=== PATIENT | female | born 1950 | race Caucasian/White ===

== ENCOUNTER 2016-11-06 20:39 | Emergency (ER) | payer OTHER ==
[~2016-11-06] VITALS: Ht 167.6 cm; Wt 98.2 kg
[2016-11-06 20:49] VITALS: BP 147/85; PULSE 86; RESP 16; O2SAT 98
--- NOTE | 2016-11-06 21:40 | ED.REPORT ---
HPI-Back Pain 40 and Over Date of Service Nov 06, 2016 ED Provider: Balwinder Rodrigues MD The patient is a 65 year old female w/ a hx of HTN and chronic back pain who presents to the ED due toto increased pain for the past couple days. She has a couple slipped disks in the back (L4-5) but it is not bad enough for surgery. She describes tingling below the left knee and pain that radiates down from her left hip into her knee. She reports excruciating pain just to stand up and sit down. She is currently on Methocarbamol, Naproxen, Gabapentin (300 BID). Associated symptoms include abdominal pain, dysuria, numbness and weakness in legs. She denies fever and incontinence. She lives by herself in an RV which is parked next to her daughter's house. Nursing Notes Stated Complaint: BACK PAIN Chief Complaint: Back Pain or Injury Nursing Notes Reviewed: Yes Allergies: Coded Allergies: No Known Allergies (Verified , 01/19/04) Scheduled Methylprednisolone (MethylprednisoLONE Dose Sean) 4 Mg Tab.ds.pk 4 MG PO UD Follow direction on package. General Time Seen by MD: 21:39 Chief Complaint Back pain Hx Obtained From: Patient Arrived By: Walk-in Sudden in Onset?: Yes Onset Occurred: More than a week ago... (1 month) Symptom Duration: Since onset Location: : Spinal lumbar area Quality: Painful Radiation: : Left leg above knee: Left leg below knee Severity: Current: Moderate Recent Healthcare: No recent doctor visit, No recent hospitalization Past Medical History Past Medical History Chronic back pain Reports: GERD, Hypertension Past Surgical History Lower lumbar surgery Knee Reports: Appendectomy, Cholecystectomy, Hysterectomy, Tonsillectomy Smoking History Never Smoker Social History Alcohol Use: Denies alcohol use Drug Use: Denies drug use Other Social History: Local resident Ambulatory Status Independent Review of Systems Constitutional: Denies: Fever GI: Reports: Abdominal pain Female: Reports: Dysuria, Denies: Incontinence Musculoskeletal: Reports: Back pain, Extremity pain (left knee), Joint pain ( left hip) Neurologic: Reports: Numbness, Weakness Complete sys rev & neg: except as marked. Physical Exam Physical Exam Notes: Initial Vital Signs Vital Signs (First) Date Time Temp Pulse Resp B/P Pulse Ox O2 Delivery O2 Flow Rate FiO2 11/06/16 20:49 36.1 86 16 147/85 98 Room Air Initial VS: Reviewed Head / Eyes: Atraumatic, Normocephalic, PERRL ENT: Mucous membranes moist, Conjunctiva normal, No scleral icterus Neck: Supple, Non-tender, Full range of motion Lymphatic: No lymphadenopathy General/Constitutional: Awake, Alert, Cooperative Distress / Hydration: Positive: Distress mild Respiratory / Chest: Atraumatic, Breath sounds NL, Breath sounds = bilat, No respiratory distress Cardiovascular: Heart rate NL, Regular rhythm, Heart sounds NL, No gallop, No murmurs, No rubs Abdomen: Atraumatic, Soft, BS normoactive, No pulsatile mass Flank / Spine / Paraspinal: Positive: Lumbar spine tender... (Low) tenderness of the lumbar sacral junction little paraspinal spasm Neurologic: Oriented X3, Speech NL, No sensory deficits Lower Extremity / Pelvis / MS: Atraumatic, Inspection NL Left Knee: Negative: Ecchymosis present, Joint effusion present, ROM reduced, Warmth present leg raise positive at 30 degrees Interpretation & Diagnostics X-Ray Interpretation Xray Interpretation: X-RAY LUMBAR SPINE IMPRESSION: no acute abnormalities Interpretation / Wet Read by: Wet read ED physician Interpretation: Normal exam Re-Eval/Medical Decision Counseled Regarding: Diagnosis, Lab results, Need for follow-up, When/why to return to ED Discharge & Departure Impression: Primary Impression: Low back pain Chronicity: chronic Back pain laterality: unspecified Sciatica presence: without sciatica Qualified Code: M54.5 - Low back pain Disposition: Home Discharge Condition All VS Reviewed: Yes Condition: Stable Additional Instructions: Emergency Department evaluation today included interview, examination, labs, and spine x-ray. There are no fractures or dangerous causes for your symptoms. I am sending you home with a little bit of Hydrocodone for pain relief. This will not be refilled from the ED. I'm going to put you on a tapering dose of steroids called a medrol dose pack. Pick these up from the pharmacy tomorrow. Take the Naproxen with food. Follow up with your primary care physician for further care. Return to the Emergency Department for any new or worsening symptoms. I hope you feel better soon! Referrals: Meseret Mcnair DO (PCP) Scribe Attestation Portion of this note were transcribed by Lien Rodríguez. I, Dr. Rodrigues, personally performed the history, physical exam, and medical decision-making: I reviewed and confirmed the accuracy for the information in the transcribed note. Signed by: wesley Manrique, 11/06/16 1965 copies to: Meseret Mcnair Donald L MD Nov 06, 2016 21:40 Lien Rodríguez Nov 06, 2016 22:05
[2016-11-06] MEDS ORDERED: _HYDROcodone/APAP 5-325 mg Tablet PO PRN (22:20)
[2016-11-06] MEDS ORDERED: predniSONE 20 mg Tablet PO ONE (22:20)
[2016-11-06] MEDS ORDERED: METH4TAB11 PO (23:12)
--- NOTE | 2016-11-07 08:58 | DRSVH ---
PROCEDURE: X-RAY LUMBAR SPINE, 2 OR 3 VIEW INDICATIONS: back pain TECHNIQUE: 3 views of the lumbar spine were acquired. COMPARISON: None. FINDINGS: Bones: 5 [id number] vertebrae are present. There is normal bony alignment. No vertebral body compression fractures. No suspicious bony lesions. Multilevel degenerative disc disease and facet ar thropathy are noted. Soft tissues: Overlying bowel gas pattern is normal. No suspicious soft tissue calcifications. IMPRESSION: No fracture. No acute osseous lesion. If symptoms and/or clinical suspicion for patholog y persists, evaluation with MRI may be helpful for further assessment. Dictated by: Peace Haynes MD, PhD on 11/07/2016 at 8:56 Approved by: Peace Haynes MD, PhD on 11/07/2016 at 8:57
== END 2016-11-06 23:27 | disposition home or self-care (01) ==
LOC: SED 20:39
DX: M54.5 Low back pain (principal); R30.0 Dysuria; K21.9 Gastro-esophageal reflux disease without esophagitis; I10 Essential (primary) hypertension; Z98.890 Other specified postprocedural states